=== PATIENT | male | born 1955 | race Caucasian/White ===

== ENCOUNTER 2016-10-21 11:37 | Emergency (ER) | payer OTHER ==
[2016-10-21] MEDS ORDERED: Diph,Pert(Acell),Tet Vac 0.5 ML SYR IM ONE (11:42)
--- NOTE | 2016-10-21 12:01 | Emergency Department Record ---
History of Present Illness - General Stated Complaint: PIECE OF METAL IN RIGHT ANKLE Time Seen by Provider: 10/21/16 11:42 Source: Patient Mode of Arrival: Ambulatory Limitations: No limitations - History of Present Illness Initial Comments: 61 yo male presents with a thin metal sumeet from a [place] flag in his lateral right ankle. He was mowing with a push mower and flag was propelled out the back hitting and remaining in his leg. No numbness or tingling. He ambulated into the ER. He is not a diabetic. He does not recall his last tetanus shot. MD Complaint: Ankle injury -: Minutes(s) Injury: Ankle: Right Type of Injury: Other (hit by a [employer] flag that exited his mower) Severity: Mild Improves With: Nothing Worsens With: Nothing Context: Other - Related Data Previous Rx's Medication Instructions Recorded Cephalexin [Keflex] 500 mg PO QID #28 cap 10/21/16 Allergies Allergy/AdvReac Type Severity Reaction Status Date / Time No Known Drug Allergies Allergy Verified 10/21/16 11:47 Review of Systems Constitutional: Denies: Chills, Fever, Weakness Eyes: Denies: Eye discharge ENT: Denies: Congestion, Throat pain Respiratory: Denies: Cough Cardiovascular: Denies: Chest pain, Palpitations, Syncope Endocrine: Denies: Fatigue Gastrointestinal: Denies: Abdominal pain, Diarrhea, Nausea, Vomiting Genitourinary: Denies: Dysuria, Frequency, Hematuria Musculoskeletal: Denies: Arthralgia, Back pain, Myalgia, Neck pain Skin: Reports: Other (ankles soft tissue FB). Denies: Bruising, Change in color , Rash Neurological: Denies: Confusion, Numbness, Tremors, Vertigo, Weakness Psychiatric: Denies: Anxiety Hematological/Lymphatic: Denies: Blood Clots, Easy bleeding, Easy bruising, Swollen glands Physical Exam - General General Appearance: Alert, Oriented x3, Cooperative, No acute distress Limitations: No limitations - Head Head exam: Atraumatic, Normocephalic, Normal inspection - Eye Eye exam: Normal appearance - ENT ENT exam: Normal exam Ear exam: Normal external inspection Nasal Exam: Normal inspection Mouth exam: Normal external inspection - Neck Neck exam: Normal inspection - Cardiovascular Cardiovascular Exam: Regular rate, Normal rhythm, Normal heart sounds Peripheral Pulses: 2+: Radial (R) - Rectal Rectal exam: Deferred - exam: Deferred - Extremities Extremities exam: Full ROM, Normal capillary refill. negative: Normal inspection, Tenderness Image of Feet: 1 - thin metal sumeet FB superficial in the lateral ankle in a through and through manner, no obvious debris. the entrance and exit are by 1.5cm of skin tissue Course - Reevaluation(s) Reevaluation #1: the patient has an obvious this wire sumeet protruding through the lateral ankle in a loop like fashion in that both ends are visible Betadine was immediately applied NS irrigation copiously Lidocaine with Epi 2ml local The metal wire was early and non traumatically removed but gently pulling it through The area was again copiously irrigated XR ordered. 10/21/16 11:56 Reevaluation #2: The patient returned from XR The wound was irrigated again with an additional 500cc of NS irrigation 10/21/16 12:34 The final XR was read as negative for injury or FB I discussed at length signs and symptoms of infection that would require immediate evaluation I explained that I do not recommend closing the small laceration at is would increase the risk for infection I instructed on home care, cleaning and dressings. 10/21/16 12:50 Disposition Disposition: Discharge Clinical Impression: Soft tissues foreign body, H/O retained foreign body fully removed Disposition: Home, Self-Care Condition: (1) Good Instructions: Soft Tissue Foreign Body (ED) Additional Instructions: Rest and elevate the ankle this weekend Avoid prolong activity or standing as this can cause swelling Return in the next 24-48 hours if you have any redness, pus, streaking, pain, fever, or concerns about a developing infection Take the Keflex every 6 hours for one week Clean the area daily as we discussed and apply the dressings Prescriptions: Cephalexin [Keflex] 500 mg PO QID #28 cap Forms: Patient Portal Access Time of Disposition: 12:53 Quality - Quality Measures Quality Measures: N/A - Blood Pressure Screening Does Patient Have Any of the Following: No Blood Pressure Classification: Pre-Hypertensive BP Reading Systolic Measurement: 134 Diastolic Measurement: 82 Screening for High Blood Pressure: < Pre-Hypertensive BP, F/U Documented > [ [id number]] Pre-Hypertensive Follow-up Interventions: Referral to alternative/primary care provider.
[2016-10-21] MEDS ORDERED: CEPHALEXIN 500 MG CAPSULE PO STA (12:08)
--- NOTE | 2016-10-21 13:19 | RADIOLOGY REPORT ---
EXAM: RIGHT ANKLE, THREE VIEWS HISTORY: PUNCTURE WOUND WITH METAL STRUCTURE. EVALUATE FOR FOREIGN BODY. TECHNIQUE: Three views of the right ankle were obtained. Comparison: None. FINDINGS: There is normal bone mineralization. No definite acute osseous fracture is seen nor is there dislocation. There are mild degenerative changes of the ankle mortise joint and hindfoot. There is moderate spurring of the Achilles tendon insertion on the posterior calcaneus. Benign linear calcific density is noted in the posterior soft tissues of the distal lower leg. There is mild to moderate lateral soft tissue swelling at the puncture wound site. No definite retained metallic foreign body identified. IMPRESSION: 1. LATERAL SOFT TISSUE SWELLING CORRESPONDING TO THE PUNCTURE WOUND SITE. NO METALLIC FOREIGN BODY IDENTIFIED. 2. NO DEFINITE ACUTE FRACTURE NOR DISLOCATION. 3. DEGENERATIVE CHANGES. JOB NUMBER: [id number] [facility]
== END 2016-10-21 13:04 | disposition home or self-care (01) ==
LOC: ER 11:37
DX: S90.551A Superficial foreign body, right ankle, initial encounter (principal); W22.8XXA Striking against or struck by other objects, initial encounter; Y93.H9 Activity, other involving exterior property and land maintenance, building and construction
CPT/HCPCS: 90715; 96372; 99283; 99284